=== PATIENT | female | born 1950 | race Caucasian/White ===

== ENCOUNTER 2018-01-05 08:43 | Outpatient (CLI) | payer MEDICARE, OTHER ==
[2018-01-05 10:33] LABS: eGFR (Non-African) > 60
== END 2018-01-05 08:44 ==
LOC: LAB 08:43
PROVIDERS: ATTEND Family Medicine
DX: E78.5 Hyperlipidemia, unspecified (principal); R73.9 Hyperglycemia, unspecified; E03.9 Hypothyroidism, unspecified
CPT/HCPCS: 36415; 80053; 80061; 83036; 84443

== ENCOUNTER 2019-03-12 08:12 | Outpatient (CLI) | payer MEDICARE, OTHER ==
[2019-03-12 08:51] LABS: A1C 6.3 % (<5.7)
[2019-03-12 09:47] LABS: eGFR (Non-African) > 60
[2019-03-12 09:48] LABS: HDL 66 mg/dL (>40)
== END 2019-03-12 08:25 ==
LOC: LAB 08:12
PROVIDERS: ATTEND Family Medicine
DX: E03.9 Hypothyroidism, unspecified (principal); R73.9 Hyperglycemia, unspecified
CPT/HCPCS: 36415; 80053; 80061; 83036; 84443